=== PATIENT | male | born 1950 | race Caucasian/White ===

== ENCOUNTER 2019-08-06 06:24 | Day surgery (SDC) | payer BC ==
[~2019-08-06 06:24] MED LIST: Dextrose 5%-0.45% NaCl 1,000 ML IV SCH; Midazolam 1 MG/ML 2 ML SDV ONE; Sodium Chloride 0.9% 10 ML Syringe FLUSH PRN; fentaNYL 100 MCG/2 ML SDV ONE
[2019-08-06] MEDS ORDERED: fentaNYL 100 MCG/2 ML SDV IV ONE ×3 (06:25→07:14)
[2019-08-06] MEDS ORDERED: Midazolam 1 MG/ML 2 ML SDV IV ONE ×3 (06:25→07:15)
--- NOTE | 2019-08-06 08:55 | OR ---
DATE: 08/06/2019 PROCEDURE: Esophagogastroduodenoscopy with multiple pinch biopsies. INSTRUMENT USED: [id number]-HQ190 Olympus video panendoscope. PREMEDICATIONS: No oral or topical anesthesia used. Fentanyl 100 mcg intravenous, Versed 2 mg intravenous. The procedure was done under pulse oximetry, BP recording, and campus monitor. INDICATION: The patient on long-term aspirin with persistent upper abdominal pain and dyspepsia unexplained and not responsive to medical measures. Esophagogastroduodenoscopy is performed for detection of any active erosive lesions, North esophagus and/or malignancy also under consideration, H. pylori status to be determined, endoscopic hemostasis therapy if needed. PROCEDURE IN DETAIL: The scope was passed with ease. Adequate visualization of the esophagus was made from proximal to distal areas. No upper esophageal lesions identified. No distal esophageal stricture. No uphill or downhill esophageal varices. No Jeannette-Baer tear. Grade D erosive changes were noted by Hawarden criteria. No esophageal polyp or tumor mass identified. Sliding hiatal hernia was noted. Gastric fundus examination by retroflexion showed no polypoid lesions. No gastric ulcer, malignant mass, or vascular ectasia identified. Gastric antral erosions were noted without bleeding from them. Duodenal bulb showed no ulcer. Visualized second part of the duodenum was unremarkable. Multiple pinch biopsies taken from the gastric antrum and proximal body, and sent for PyloriTek test for H. pylori, and if negative in an hour, tissue is to be sent for histopathology. No bleeding was noted from any of the visualized areas at the completion of examination. IMPRESSION: 1. Grade D gastroesophageal reflux disease. 2. Sliding hiatal hernia. The patient tolerated the procedure well. [facility] /[id number]
[2019-08-06 10:08] VITALS: BP 122/58; PULSE 56
== END 2019-08-06 09:25 | disposition home or self-care (01) ==
LOC: DL.ENDO 06:24
PROVIDERS: ATTEND Internal Medicine Gastroenterology
DX: K21.9 Gastro-esophageal reflux disease without esophagitis (principal); K44.9 Diaphragmatic hernia without obstruction or gangrene; I10 Essential (primary) hypertension; E78.00 Pure hypercholesterolemia, unspecified; G43.909 Migraine, unspecified, not intractable, without status migrainosus; Z79.82 Long term (current) use of aspirin; Z88.8 Allergy status to other drugs, medicaments and biological substances
CPT/HCPCS: 43239; 87077; J2250; J3010; J7042

== ENCOUNTER 2019-10-23 05:27 | Day surgery (SDC) | payer BC, MEDICARE ==
[2019-10-23] MEDS ORDERED: Midazolam 1 MG/ML 2 ML SDV IV ONE ×3 (05:28→06:26)
[2019-10-23] MEDS ORDERED: fentaNYL 100 MCG/2 ML SDV IV ONE ×3 (05:28→06:25)
[2019-10-23] MEDS ORDERED: Dextrose 5%-0.45% NaCl 1,000 ML IV SCH (05:54)
[2019-10-23] MEDS ORDERED: Midazolam 1 MG/ML 2 ML SDV ONE (06:05)
[2019-10-23] MEDS ORDERED: fentaNYL 100 MCG/2 ML SDV ONE (06:07)
--- NOTE | 2019-10-23 09:59 | OR ---
DATE: 10/23/2019 PROCEDURE: Esophagogastroduodenoscopy and multiple pinch biopsies. INSTRUMENT USED: [id number] Olympus video panendoscope. PREMEDICATIONS: No oral or topical anesthesia used. Fentanyl 100 mcg intravenous, Versed 2 mg intravenous, nasal O2 cannula. The procedure was done under pulse oximetry, BP recording, and pvc monitor. INDICATION: The patient with previous grade D gastroesophageal reflux disease, treated with PPI. Followup esophagogastroduodenoscopy is performed for detection of any erosive lesions, verification of total healing of esophageal ulcers, suspected North esophagus and/or malignancy, endoscopic hemostasis therapy if needed. PROCEDURE IN DETAIL: The scope was passed with ease. Adequate visualization of the esophagus was made from proximal to distal areas. No upper esophageal lesions identified. No distal esophageal stricture. No uphill or downhill esophageal varices. No Jeannette-Baer tear. No evidence of erosive esophagitis by Rueter criteria. No esophageal polyp or tumor mass identified. Z-line was seen at around 38 cm distal to the oral verge, 4 quadrant biopsies were taken and sent for any histopathologic evidence of intestinal metaplasia. No proximal gastric varices noted. Gastric fundus examination by retroflexion showed benign diminutive polyps. No gastric ulcer, malignant mass, or vascular ectasia identified. Diverticulum was noted in the proximal gastric antrum. Duodenal bulb showed no ulcer. Visualized 2nd part of the duodenum was unremarkable. No bleeding was noted from any of the visualized areas at the completion of examination. Photographs were taken of the duodenal bulb, gastric antrum, fundus, and distal esophagus. IMPRESSION: 1. Diminutive gastric fundus polyps. 2. Gastric antrum diverticula. The patient tolerated the procedure well. [facility] /[id number]
[2019-10-23 10:26] VITALS: BP 105/58; PULSE 44
== END 2019-10-23 08:38 | disposition home or self-care (01) ==
LOC: DL.ENDO 05:27
PROVIDERS: ATTEND Internal Medicine Gastroenterology
DX: K21.9 Gastro-esophageal reflux disease without esophagitis (principal); K31.7 Polyp of stomach and duodenum; K31.4 Gastric diverticulum; K31.89 Other diseases of stomach and duodenum; I10 Essential (primary) hypertension; E78.00 Pure hypercholesterolemia, unspecified
CPT/HCPCS: 43239; J2250; J3010; J7042

== ENCOUNTER 2020-08-15 06:12 | Day surgery (SDC) | payer BC, MEDICARE ==
[~2020-08-15 06:12] MED LIST changes: -Midazolam 1 MG/ML 2 ML SDV ONE; -fentaNYL 100 MCG/2 ML SDV ONE
[2020-08-15] MEDS ORDERED: Midazolam 1 MG/ML 2 ML SDV IV ONE ×6 (06:13→07:43)
[2020-08-15] MEDS ORDERED: fentaNYL 100 MCG/2 ML SDV IV ONE ×3 (06:13→07:34)
[2020-08-15] MEDS ORDERED: Midazolam 1 MG/ML 2 ML SDV ONE (06:16)
[2020-08-15] MEDS ORDERED: fentaNYL 100 MCG/2 ML SDV ONE (06:16)
[2020-08-15 10:10] VITALS: BP 110/78; PULSE 64
--- NOTE | 2020-08-15 13:00 | OR ---
DATE: PROCEDURE: Total colonoscopy and benign cold snare polypectomy. INSTRUMENT USED: [id number] Olympus video colonoscope. PREMEDICATIONS: Fentanyl 100 mcg intravenous and versed 3.5 mg intravenous. The procedure was done under pulse oximetry, BP recording, and cardiac nurse specialist. INDICATION: The patient with previous colonic tubular adenomas. Surveillance colonoscopy examination is done for detection of any polypoid lesions and removal, endoscopic hemostasis therapy if needed. DESCRIPTION OF PROCEDURE: Initial rectal exam was unremarkable. Rigid anoscopy was normal. The colonoscope was passed with ease. Few scattered diverticula were noted in the distal left colon along with some deformity. The scope was passed with ease up to the ileocecal area. Photographs were taken of the normal- appearing cecum, identified by landmarks of appendiceal orifice and double- bulged ileocecal folds. No bleeding was noted from any of the visualized areas at the commencement of the examination. The bowel preparation was found to be adequate, Cleaton scale 3 in all the regions, total score 9. No stricture. No vascular ectasia. No large isolated ulcerations seen. No evidence of diffuse inflammatory bowel disease in the form of friability, contact bleeding, or ulcerations. In the mid ascending colon, 3 mm sized benign-appearing polyp was noted, NBI views were obtained, photographs were taken, cold snare polypectomy was done, the tissue was retrieved and sent for histopathology. Probing the proximal sides of folds and flexures using adequate distention and clearing up the stool, withdrawal of the scope was made. IMPRESSION: 1. Diverticulosis. 2. Diminutive ascending colon polyp. The patient tolerated the procedure well. [facility] /[id number] [facility]
== END 2020-08-15 09:54 | disposition home or self-care (01) ==
LOC: DL.ENDO 06:12
PROVIDERS: ATTEND Internal Medicine Gastroenterology
DX: Z12.11 Encounter for screening for malignant neoplasm of colon (principal); D12.2 Benign neoplasm of ascending colon; K57.30 Diverticulosis of large intestine without perforation or abscess without bleeding; I12.9 Hypertensive chronic kidney disease with stage 1 through stage 4 chronic kidney disease, or unspecified chronic kidney disease; N18.9 Chronic kidney disease, unspecified; E78.00 Pure hypercholesterolemia, unspecified; L57.0 Actinic keratosis; Z86.73 Personal history of transient ischemic attack (TIA), and cerebral infarction without residual deficits; Z88.8 Allergy status to other drugs, medicaments and biological substances; Z98.890 Other specified postprocedural states; Z86.010 Personal history of colon polyps
CPT/HCPCS: 45385; J2250; J3010; J7042

== ENCOUNTER 2023-01-28 08:34 | Emergency (ER) | payer BC, MEDICARE ==
[2023-01-28] MEDS ORDERED: Sodium Chloride 0.9% 10 ML Syringe FLUSH PRN (08:54)
[2023-01-28 09:04] LABS: BASOPHILS PERCENT AUTO 0.5 % (0.0-1.0); EOSINOPHILS PERCENT AUTO 2.3 % (1.0-3.0); HEMOGLOBIN 14.5 g/dL (14.0-18.0); LYMPHOCYTES PERCENT AUTO 34.4 % (20.5-50.1); MEAN CORPUSCULAR HEMOGLOBIN 31.6 pg (27.0-34.0); MEAN CORPUSCULAR HGB CONC 36.3 g/dL (33.0-35.0); MEAN CORPUSCULAR VOLUME 87.1 fL (80-100); NEUTROPHILS PERCENT AUTO 57.8 % (42.2-75.2); PLATELET COUNT,PLT 207 10^3/uL (150-450); RED BLOOD CELL COUNT 4.59 10^6/uL (4.6-6.2); WHITE BLOOD CELL COUNT,WBC 6.4 10^3/uL (5.0-10.0)
[2023-01-28] MEDS ORDERED: Sodium Chloride 0.9% 1,000 ML IV ONE ×2 (09:06→09:36)
[2023-01-28 09:36] LABS: LACTIC ACID 2.9 mmol/L (0.4-2.0)
[2023-01-28 09:37] LABS: INR 0.9 (0.9-1.2); PROTHROMBIN TIME 9.7 SEC (9.0-12.0)
[2023-01-28 09:39] LABS: A/G RATIO 1.3; ALANINE AMINOTRANSFERASE,ALT 38 U/L (16-63); ALKALINE PHOSPHATASE 86 U/L (46-116); AMYLASE 70 U/L (25-115); ANION GAP 13.8 mEq/L (7-13); ASPARTATE AMNIOTRANSFERASE,AST 17 U/L (15-37); BILIRUBIN TOTAL 1.4 mg/dL (0.2-1.0); BLOOD UREA NITROGEN,BUN 22 mg/dL (7-18); BUN/CREATININE RATIO 17.7 (No establ ref range); CALCIUM 8.9 mg/dL (8.5-10.1); CARBON DIOXIDE,CO2 24 mmol/L (21-32); CHLORIDE,CL 104 mmol/L (98-107); CREATININE 1.24 mg/dL (0.70-1.30); EST CRCL DRUG DOSING (CG) 60.84 mL/min; GLUCOSE RANDOM 138 mg/dL (70-99); LIPASE 92 U/L (73-393); MAGNESIUM 1.6 mg/dL (1.8-2.4); POTASSIUM,K 3.8 mmol/L (3.5-5.1); SODIUM,NA 138 mmol/L (136-145); TSH ULTRASENSITIVE 2.47 uIU/mL (0.36-3.74)
[2023-01-28 09:42] LABS: C-REACTIVE PROTEIN < 0.2 mg/dL (0.0-0.9); ESTIMATED GFR 63 mL/min (>=60)
[2023-01-28] MEDS ORDERED: HYDROmorphone 0.5 MG/0.5 ML Syringe IVPUSH ONE (10:10)
[2023-01-28 11:28] LABS: APPEARANCE,URINE CLEAR (CLEAR); BILIRUBIN,URINE NEGATIVE (NEGATIVE); COLOR,URINE YELLOW (YELLOW); GLUCOSE,URINE NEGATIVE (NEGATIVE); KETONES,URINE NEGATIVE (NEGATIVE); LEUKOCYTE ESTERASE,URINE NEGATIVE (NEGATIVE); NITRITE,URINE NEGATIVE (NEGATIVE); OCCULT BLOOD,URINE NEGATIVE (NEGATIVE); PH,URINE 8.5 (5.0-9.0); PROTEIN,URINE NEGATIVE (NEGATIVE); UROBILINOGEN,URINE 0.2 mg/dL (0.2-1.0)
[2023-01-28] MEDS ORDERED: Ondansetron 4 MG/2 ML SDV IVPUSH ONE (11:45)
[2023-01-28 12:21] VITALS: BP 115/60; PULSE 50
== END 2023-01-28 12:19 | disposition home or self-care (01) ==
LOC: DL.ED 08:34
DX: E86.0 Dehydration (principal); E87.20 Acidosis, unspecified; G44.89 Other headache syndrome; I10 Essential (primary) hypertension; E78.00 Pure hypercholesterolemia, unspecified; K21.9 Gastro-esophageal reflux disease without esophagitis; M19.90 Unspecified osteoarthritis, unspecified site; Z79.899 Other long term (current) drug therapy; Z79.82 Long term (current) use of aspirin
CPT/HCPCS: 36415; 70450; 80053; 81003; 82150; 82947; 83605; 83690; 83735; 84145; 84443; 84484; 85025; 85610; 86140; 87040; 93005; 96361; 96374; 99285; J2405; J7030; 93010; 99284; J3490

== ENCOUNTER 2024-07-23 12:28 | Emergency (ER) | payer BC ==
[2024-07-23 13:47] LABS: PROTHROMBIN TIME 9.9 SEC (9.0-12.0)
[2024-07-23 14:00] VITALS: BP 128/70; PULSE 53
== END 2024-07-23 14:45 | disposition home or self-care (01) ==
LOC: DL.ED 12:28
DX: S86.912A Strain of unspecified muscle(s) and tendon(s) at lower leg level, left leg, initial encounter (principal); I12.9 Hypertensive chronic kidney disease with stage 1 through stage 4 chronic kidney disease, or unspecified chronic kidney disease; N18.9 Chronic kidney disease, unspecified; E78.00 Pure hypercholesterolemia, unspecified; K21.9 Gastro-esophageal reflux disease without esophagitis; M19.90 Unspecified osteoarthritis, unspecified site; Z86.73 Personal history of transient ischemic attack (TIA), and cerebral infarction without residual deficits; Z86.16 Personal history of COVID-19; Z90.89 Acquired absence of other organs; Z79.82 Long term (current) use of aspirin; Z79.899 Other long term (current) drug therapy; X58.XXXA Exposure to other specified factors, initial encounter
CPT/HCPCS: 36415; 85379; 85610; 85730; 99283

== ENCOUNTER 2024-09-12 06:22 | Day surgery (SDC) | payer BC ==
[2024-09-12] MEDS ORDERED: Midazolam 1 MG/ML 2 ML SDV IV ONE (06:23)
[2024-09-12] MEDS ORDERED: Sodium Chloride 0.9% 10 ML Syringe IV ONE (06:23)
[2024-09-12] MEDS ORDERED: Dexamethasone 4 MG/ML SDV IV ONE (06:23)
[2024-09-12] MEDS ORDERED: Acetaminophen 325 MG Tab PO PRN (06:30)
[2024-09-12] MEDS ORDERED: Ondansetron 4 MG/2 ML SDV IVPUSH PRN (06:30)
[2024-09-12] MEDS ORDERED: Acetaminophen/Codeine 300-30 MG Tab PO PRN (06:30)
[2024-09-12] MEDS: Sodium Chloride 0.9% 10 ML Syringe FLUSH PRN (06:46)
[2024-09-12] MEDS: Proparacaine 0.5% Ophth Soln 15 ML Bottle EYELF ONE ×2 (06:53→07:49)
[2024-09-12] MEDS: Povidone-Iodine 5% Sterile Ophth Soln 30 ML Bottle EYELF ONE ×2 (06:54→07:51)
[2024-09-12] MEDS: Moxifloxacin 0.5% Ophth Soln 3 ML Bottle EYELF ONE (06:54)
[2024-09-12] MEDS: Tropicamide 1% Ophth Soln 15 ML Bottle EYELF ONE (06:55)
[2024-09-12] MEDS: Phenylephrine 10% Ophth Soln 5 ML Bot EYELF ONE (06:56)
[2024-09-12] MEDS: Timolol Maleate 0.5% Ophth Soln 5 ML Bottle EYELF ONE (06:57)
[2024-09-12] MEDS: Cataract Ophth Solution EYELF ONE (06:58)
[2024-09-12] MEDS: VANCOmycin 500 MG SDV EYELF ONE ×2 (08:00→08:04)
[2024-09-12] MEDS: Lidocaine 1% 30 ML SDV ONE ×2 (08:00→08:04)
[2024-09-12] MEDS: Apraclonidine 0.5% Ophth Soln 5 ML Bot EYELF ONE (08:11)
[2024-09-12] MEDS: Diclofenac Sodium 0.1% Ophth Soln 5 ML Bottle EYELF ONE (08:12)
[2024-09-12] MEDS: Dexamethasone/Neomycin/Polymyxin B Ophth Oint 3.5 GM Tube EYELF ONE (08:12)
[2024-09-12 08:50] VITALS: BP 147/59; PULSE 64
== END 2024-09-12 08:56 | disposition home or self-care (01) ==
LOC: DL.SDS 06:22
PROVIDERS: ATTEND Ophthalmology
DX: H25.812 Combined forms of age-related cataract, left eye (principal)
CPT/HCPCS: 66984; A9270; J1100; J2250; J3370; J3490

== ENCOUNTER 2024-09-26 06:27 | Day surgery (SDC) | payer BC ==
[2024-09-26] MEDS ORDERED: Dexamethasone 4 MG/ML SDV IV ONE (06:28)
[2024-09-26] MEDS ORDERED: Midazolam 1 MG/ML 2 ML SDV IV ONE (06:28)
[2024-09-26] MEDS ORDERED: Sodium Chloride 0.9% 10 ML Syringe IV ONE (06:28)
[2024-09-26] MEDS ORDERED: Acetaminophen/Codeine 300-30 MG Tab PO PRN (06:30)
[2024-09-26] MEDS ORDERED: Acetaminophen 325 MG Tab PO PRN (06:30)
[2024-09-26] MEDS ORDERED: Ondansetron 4 MG/2 ML SDV IVPUSH PRN (06:30)
[2024-09-26] MEDS: Sodium Chloride 0.9% 10 ML Syringe FLUSH PRN (07:03)
[2024-09-26] MEDS: Proparacaine 0.5% Ophth Soln 15 ML Bottle EYERT ONE ×2 (07:04→08:09)
[2024-09-26] MEDS: Moxifloxacin 0.5% Ophth Soln 3 ML Bottle EYERT ONE (07:05)
[2024-09-26] MEDS: Povidone-Iodine 5% Sterile Ophth Soln 30 ML Bottle EYERT ONE ×2 (07:06→08:09)
[2024-09-26] MEDS: Tropicamide 1% Ophth Soln 15 ML Bottle EYERT ONE (07:06)
[2024-09-26] MEDS: Phenylephrine 10% Ophth Soln 5 ML Bot EYERT ONE (07:06)
[2024-09-26] MEDS: Timolol Maleate 0.5% Ophth Soln 5 ML Bottle EYERT ONE (07:07)
[2024-09-26] MEDS: Cataract Ophth Solution EYERT ONE (07:07)
[2024-09-26] MEDS: Apraclonidine 0.5% Ophth Soln 5 ML Bot EYERT ONE (08:09)
[2024-09-26] MEDS: Dexamethasone/Neomycin/Polymyxin B Ophth Oint 3.5 GM Tube EYERT ONE (08:09)
[2024-09-26] MEDS: Diclofenac Sodium 0.1% Ophth Soln 5 ML Bottle EYERT ONE (08:09)
[2024-09-26] MEDS: Lidocaine 1% 30 ML SDV ONE (08:12)
[2024-09-26] MEDS: VANCOmycin 500 MG SDV EYERT ONE (08:13)
[2024-09-26 08:46] VITALS: PULSE 48
[2024-09-26 09:09] VITALS: BP 156/71
== END 2024-09-26 09:07 | disposition home or self-care (01) ==
LOC: DL.SDS 06:27
PROVIDERS: ATTEND Ophthalmology
DX: H25.811 Combined forms of age-related cataract, right eye (principal); I10 Essential (primary) hypertension; Z79.82 Long term (current) use of aspirin; Z79.899 Other long term (current) drug therapy
CPT/HCPCS: A9270-GY; J1100; J2250; J3370; J3490; V2788-GY

== ENCOUNTER 2024-12-11 07:24 | Day surgery (SDC) | payer BC ==
[2024-12-11] MEDS: Dextrose 5%-0.45% NaCl 1,000 ML IV SCH (07:42)
[2024-12-11] MEDS ORDERED: Midazolam 1 MG/ML 2 ML SDV ONE (08:50)
[2024-12-11] MEDS ORDERED: fentaNYL 100 MCG/2 ML SDV ONE (08:50)
[2024-12-11] MEDS ORDERED: Midazolam 1 MG/ML 2 ML SDV IV ONE (08:50)
[2024-12-11] MEDS ORDERED: fentaNYL 100 MCG/2 ML SDV IV ONE (08:50)
[2024-12-11] MEDS: fentaNYL 100 MCG/2 ML SDV IV ONE ×2 (09:07→09:08)
[2024-12-11] MEDS: Midazolam 1 MG/ML 2 ML SDV IV ONE ×2 (09:08→09:09)
[2024-12-11 10:13] VITALS: BP 147/69; PULSE 57
== END 2024-12-11 10:35 | disposition home or self-care (01) ==
LOC: DL.ENDO 07:24
PROVIDERS: ATTEND Internal Medicine Gastroenterology
DX: K29.50 Unspecified chronic gastritis without bleeding (principal); K31.89 Other diseases of stomach and duodenum
CPT/HCPCS: J2250; J3010